=== PATIENT | female | born 1960 | race Caucasian/White ===

== ENCOUNTER 2017-12-12 17:34 | Inpatient (IN) | payer OTHER, MEDICAID ==
[~2017-12-12] VITALS: Ht 167.6 cm; Wt 46.1 kg
[2017-12-12] MEDS ORDERED: MORPHINE SULFATE 4 MG/ML SYR/VIAL IV ONE ×2 (18:30→20:00)
[2017-12-12] MEDS ORDERED: ONDANSETRON HCL 4 MG/2 ML VIAL IV ONE ×2 (18:30→20:00)
[2017-12-12] MEDS ORDERED: HYDROmorphone HCL 2 MG/ML VL IV ONE (23:15)
[2017-12-13 02:23] LABS: Basophils # (auto) 0.1 uL; Eosinophils # (auto) 0.2 uL; Hemoglobin 11.3 g/dL (12.2-16.2)
[2017-12-13 02:25] LABS: Basophils % (auto) 1.4 % (0.0-2.0); Eosinophils % (auto) 2.4 % (0.0-7.0); Hematocrit 34.2 % (36.0-46.0); Lymphocytes # (auto) 2.9 uL; Lymphocytes % (auto) 28.9 % (10.0-50.0); Mean Corpuscular Hemoglobin 26.6 pg (28.0-32.0); Mean Corpuscular Hgb Conc. 33.1 g/dL (32.0-36.0); Mean Corpuscular Volume 80.5 fL (80.0-100.0); Monocytes # (auto) 1.2 uL; Monocytes % (auto) 11.6 % (0.0-12.0); Neutrophils # (auto) 5.6 uL; Neutrophils % (auto) 55.7 % (37.0-80.0); Platelet Count (auto) 308 10^3/uL (140-450); Red Blood Cells 4.25 10^6/uL (4.0-5.20); Red Cell Distribution Width 15.6 % (11.8-14.3)
[2017-12-13 02:35] LABS: BUN/Creatinine Ratio 8.9; Calcium 7.6 mg/dL (8.5-10.1)
[2017-12-13 02:44] LABS: Bilirubin, Total 0.8 mg/dL (0.2-1.0); Total Protein 6.2 g/dL (6.4-8.2)
[2017-12-13 02:46] LABS: Potassium 2.8 mmol/L (3.5-5.1)
[2017-12-13] MEDS ORDERED: POTASSIUM CHL 20 Meq TABLET PO ONE ×2 (03:00→07:00)
[2017-12-13] MEDS ORDERED: HYDROmorphone HCL 2 MG/ML VL IV ONE (03:30)
[2017-12-13 05:29] LABS: Urine Amorphous Crystal FEW /hpf (None Seen); Urine Bacteria NONE SEEN /hpf (None Seen); Urine Blood Negative /uL (Negative); Urine Specific Gravity 1.014 (1.001-1.035); Urine WBC 2 /hpf (0 - 5)
[2017-12-13] MEDS ORDERED: ACETAMINOPHEN 500 MG TAB PO PRN (07:00)
[2017-12-13] MEDS ORDERED: methylPREDNISolone SOD SUCC 125 MG/2 ML VL IM ONE (07:00)
[2017-12-13] MEDS ORDERED: MORPHINE SULFATE 4 MG/ML SYR/VIAL IV PRN (07:00)
[2017-12-13] MEDS ORDERED: HYDROcodone-ACET 5/325MG TAB PO PRN ×2 (07:00→10:30)
[2017-12-13 08:01] LABS: Basophils # (auto) 0.1 uL; Eosinophils # (auto) 0.4 uL; Monocytes # (auto) 1.1 uL; Nucleated Red Blood Cells % 0.1 %
[2017-12-13 08:02] LABS: Eosinophils % (auto) 3.7 % (0.0-7.0); Hematocrit 37.5 % (36.0-46.0); Lymphocytes # (auto) 3.5 uL; Lymphocytes % (auto) 33.3 % (10.0-50.0); Mean Corpuscular Hemoglobin 26.3 pg (28.0-32.0); Mean Corpuscular Hgb Conc. 32.1 g/dL (32.0-36.0); Mean Corpuscular Volume 81.8 fL (80.0-100.0); Neutrophils # (auto) 5.5 uL; Platelet Count (auto) 326 10^3/uL (140-450); Red Blood Cells 4.58 10^6/uL (4.0-5.20); White Blood Cell 10.6 10^3/uL (4.4-10.8)
[2017-12-13 08:13] LABS: BUN/Creatinine Ratio 7.5; Calcium 7.7 mg/dL (8.5-10.1); Potassium 3.2 mmol/L (3.5-5.1)
[2017-12-13 08:45] VITALS: BP 150/102
[2017-12-13] MEDS ORDERED: LORA-654 PO (09:53)
[2017-12-13] MEDS ORDERED: PNEUMOCOCCAL VACC POLYS 25 MCG/0.5 ML VIAL IM ONE (10:00)
[2017-12-13] MEDS ORDERED: INFLUENZA QUAD 2018-2019 0.5 ML SYRG IM ONE (10:00)
[2017-12-13] MEDS: LORazepam 0.5 MG TAB PO PRN ×2 (11:16→19:59)
[2017-12-13] MEDS: SOD CHL 0.45% WITH 20MEQ KCL 1,000 ML IV SCH ×2 (11:17→21:09)
[2017-12-13] MEDS: POTASSIUM CHL 20 Meq TABLET PO SCH ×2 (11:17→22:05)
[2017-12-13 13:00] VITALS: BP 157/99
[2017-12-13] MEDS ORDERED: MORPHINE SULFATE 4 MG/ML SYR/VIAL IV ONE (16:15)
[2017-12-13] MEDS ORDERED: OXYCODONE W/ ACETAMINOPHEN 5/325MG TABLET PO PRN (16:15)
[2017-12-13 16:47] VITALS: BP 161/91
[2017-12-13] MEDS: OXYCODONE W/ ACETAMINOPHEN 5/325MG TABLET PO PRN (18:54)
[2017-12-13 22:00] VITALS: BP 156/101
[2017-12-13] MEDS ORDERED: MORPHINE SULF 15mg ER tab PO SCH (22:00)
[2017-12-14] MEDS ORDERED: NALBUPHINE HCL 10 MG/1ml INJECTION IM ONE (01:00)
[2017-12-14] MEDS: OXYCODONE W/ ACETAMINOPHEN 5/325MG TABLET PO PRN ×2 (01:57→06:50)
[2017-12-14 05:00] VITALS: BP 163/115
[2017-12-14] MEDS: LORazepam 0.5 MG TAB PO PRN ×2 (06:13→16:34)
[2017-12-14] MEDS: SOD CHL 0.45% WITH 20MEQ KCL 1,000 ML IV SCH (06:43)
[2017-12-14 07:59] LABS: Basophils # (auto) 0.1 uL; Eosinophils # (auto) 0 uL; Nucleated Red Blood Cells % 0.2 %; Red Blood Cells 4.45 10^6/uL (4.0-5.20)
[2017-12-14 08:02] LABS: Basophils % (auto) 0.6 % (0.0-2.0); Eosinophils % (auto) 0.2 % (0.0-7.0); Hematocrit 36.1 % (36.0-46.0); Hemoglobin 11.5 g/dL (12.2-16.2); Lymphocytes # (auto) 4.1 uL; Mean Corpuscular Hemoglobin 25.9 pg (28.0-32.0); Mean Corpuscular Volume 81.1 fL (80.0-100.0); Monocytes # (auto) 1.3 uL; Monocytes % (auto) 10.4 % (0.0-12.0); Neutrophils # (auto) 6.6 uL; Neutrophils % (auto) 54.8 % (37.0-80.0); Platelet Count (auto) 342 10^3/uL (140-450); Red Cell Distribution Width 15.3 % (11.8-14.3)
[2017-12-14 08:13] LABS: Calcium 8.3 mg/dL (8.5-10.1)
[2017-12-14 08:15] LABS: BUN/Creatinine Ratio 15.1
[2017-12-14 08:51] VITALS: BP 175/118
[2017-12-14] MEDS ORDERED: MORPHINE SULFATE 4 MG/ML SYR/VIAL IV ONE (09:00)
[2017-12-14] MEDS ORDERED: methylPREDNISolone SOD SUCC 125 MG/2 ML VL IV ONE (09:00)
[2017-12-14] MEDS ORDERED: MORPHINE SULF 15mg ER tab PO ONE (09:00)
[2017-12-14] MEDS: MORPHINE SULFATE 10 MG/5 ML ORAL SOLN PO PRN ×3 (11:49→22:58)
[2017-12-14] MEDS: cloNIDine HCL 0.1 MG TAB PO PRN ×2 (11:50→17:48)
[2017-12-14 12:00] VITALS: BP 162/115
[2017-12-14 16:54] VITALS: BP 181/95
[2017-12-14] MEDS ORDERED: HYDR2TAB58 PO (19:31)
[2017-12-14] MEDS ORDERED: CAR3125T PO (19:31)
[2017-12-14] MEDS: MORPHINE SULF 30 mg ER tab PO SCH (21:36)
[2017-12-14 21:44] VITALS: BP 148/86
[2017-12-15] MEDS: LORazepam 0.5 MG TAB PO PRN ×4 (00:56→22:49)
[2017-12-15] MEDS: MORPHINE SULFATE 10 MG/5 ML ORAL SOLN PO PRN ×2 (03:14→07:55)
[2017-12-15 04:39] VITALS: BP 147/73
[2017-12-15 05:45] LABS: Basophils # (auto) 0.1 uL; Eosinophils # (auto) 0.1 uL; Hemoglobin 11.7 g/dL (12.2-16.2); Lymphocytes # (auto) 2.6 uL; Monocytes # (auto) 0.9 uL
[2017-12-15 05:52] LABS: Basophils % (auto) 0.5 % (0.0-2.0); Eosinophils % (auto) 0.6 % (0.0-7.0); Hematocrit 35.5 % (36.0-46.0); Lymphocytes % (auto) 25.8 % (10.0-50.0); Mean Corpuscular Hemoglobin 26.9 pg (28.0-32.0); Mean Corpuscular Hgb Conc. 32.8 g/dL (32.0-36.0); Mean Corpuscular Volume 81.9 fL (80.0-100.0); Monocytes % (auto) 8.8 % (0.0-12.0); Neutrophils # (auto) 6.6 uL; Neutrophils % (auto) 64.3 % (37.0-80.0); Nucleated Red Blood Cells % 0.2 %; Platelet Count (auto) 303 10^3/uL (140-450); Red Blood Cells 4.34 10^6/uL (4.0-5.20); Red Cell Distribution Width 15.7 % (11.8-14.3); White Blood Cell 10.2 10^3/uL (4.4-10.8)
[2017-12-15 05:59] LABS: Potassium 3.6 mmol/L (3.5-5.1)
[2017-12-15 06:07] LABS: Calcium 8.1 mg/dL (8.5-10.1)
[2017-12-15] MEDS ORDERED: POTASSIUM CHL 20 Meq TABLET PO ONE (08:15)
[2017-12-15] MEDS: cloNIDine HCL 0.1 MG TAB PO PRN ×2 (08:29→21:17)
[2017-12-15 09:00] VITALS: BP 163/86
[2017-12-15] MEDS: MORPHINE SULF 30 mg ER tab PO SCH ×2 (09:17→22:05)
[2017-12-15] MEDS: predniSONE 20 MG TAB PO SCH (09:17)
[2017-12-15] MEDS: HYDROmorphone HCL 2 MG TAB PO PRN ×3 (12:44→20:56)
[2017-12-15 13:00] VITALS: BP 149/91
[2017-12-15 17:00] VITALS: BP 153/95
[2017-12-15 22:00] VITALS: BP 163/103
[2017-12-15 22:17] VITALS: BP 150/89
[2017-12-16] MEDS: HYDROmorphone HCL 2 MG TAB PO PRN ×3 (02:03→12:45)
[2017-12-16] MEDS: cloNIDine HCL 0.1 MG TAB PO PRN (04:19)
[2017-12-16 04:41] VITALS: BP 164/102
[2017-12-16 05:49] LABS: Basophils # (auto) 0.1 uL; Eosinophils # (auto) 0.1 uL; Eosinophils % (auto) 0.8 % (0.0-7.0); Neutrophils # (auto) 5.4 uL; Nucleated Red Blood Cells % 0.1 %
[2017-12-16 05:51] LABS: Basophils % (auto) 0.7 % (0.0-2.0); Hematocrit 35.8 % (36.0-46.0); Hemoglobin 11.5 g/dL (12.2-16.2); Lymphocytes # (auto) 3.2 uL; Lymphocytes % (auto) 32.6 % (10.0-50.0); Mean Corpuscular Hemoglobin 25.8 pg (28.0-32.0); Mean Corpuscular Volume 80.9 fL (80.0-100.0); Monocytes % (auto) 10.6 % (0.0-12.0); Neutrophils % (auto) 55.3 % (37.0-80.0); Platelet Count (auto) 308 10^3/uL (140-450); Red Blood Cells 4.43 10^6/uL (4.0-5.20); Red Cell Distribution Width 15.3 % (11.8-14.3); White Blood Cell 9.8 10^3/uL (4.4-10.8)
[2017-12-16 06:00] LABS: BUN/Creatinine Ratio 17.5; Calcium 8.2 mg/dL (8.5-10.1); Potassium 3.6 mmol/L (3.5-5.1)
[2017-12-16] MEDS: LORazepam 0.5 MG TAB PO PRN (06:27)
[2017-12-16] MEDS ORDERED: MORPHINE SULFATE 4 MG/ML SYR/VIAL IV ONE (07:45)
[2017-12-16] MEDS: predniSONE 20 MG TAB PO SCH (10:25)
[2017-12-16] MEDS: MORPHINE SULF 30 mg ER tab PO SCH (10:25)
[2017-12-16 12:53] VITALS: BP 146/99
== END 2017-12-16 14:50 | disposition home health service (06) | DRG 554 ==
LOC: ER 17:34 → EDBD 17:34 → OVERFLOW 17:35 → WEST WING 12-13 08:52
PROVIDERS: ADMIT Nurse Practitioner Family; ATTEND Internal Medicine
DX: M16.0 Bilateral primary osteoarthritis of hip (principal); M54.9 Dorsalgia, unspecified; E87.6 Hypokalemia; F17.210 Nicotine dependence, cigarettes, uncomplicated; M24.7 Protrusio acetabuli; M48.02 Spinal stenosis, cervical region; G89.29 Other chronic pain; I50.9 Heart failure, unspecified; M19.019 Primary osteoarthritis, unspecified shoulder; M06.9 Rheumatoid arthritis, unspecified; W07.XXXA Fall from chair, initial encounter; Z87.81 Personal history of (healed) traumatic fracture; Z98.51 Tubal ligation status; Y93.89 Activity, other specified; Y92.89 Other specified places as the place of occurrence of the external cause; Z28.21 Immunization not carried out because of patient refusal
CPT/HCPCS: 36415; 72125; 72131; 72192; 73030; 73090; 73200; 76881; 80048; 80053; 81001; 85025; 96374; 96375; 96376; 97116; 97163; 97530; J2405

== ENCOUNTER 2019-08-09 21:58 | Inpatient (IN) | payer MEDICARE, MEDICAID ==
[~2019-08-09] VITALS: Ht 157.5 cm; Wt 51.3 kg
[~2019-08-09 21:58] MED LIST: CAR3125T PO; HYDR2TAB58 PO; LORA0.5T20 PO; SERT50TA PO
[2019-08-09] MEDS ORDERED: PHYTONADIONE (VIT K)10 MG/ML 1ML VIAL SUBCUT ONE (22:15)
[2019-08-09] MEDS ORDERED: PANTOPRAZOLE 40 MG/10 ML VIAL INJ IV ONE (22:15)
[2019-08-09 22:42] LABS: Basophils # (auto) 0 10 ^3/uL (0-0.2); Basophils % (auto) 0.5 % (0.0-2.0); Eosinophils # (auto) 0.1 10 ^3/uL (0-0.8); Eosinophils % (auto) 1.1 % (0.0-7.0); Hematocrit 21.2 % (36.0-46.0); Lymphocytes # (auto) 1.1 10 ^3/uL (0.4-5.4); Lymphocytes % (auto) 17.9 % (10.0-50.0); Mean Corpuscular Hemoglobin 29.1 pg (28.0-32.0); Mean Corpuscular Hgb Conc. 29.9 g/dL (32.0-36.0); Mean Corpuscular Volume 97.2 fL (80.0-100.0); Monocytes # (auto) 0.6 10 ^3/uL (0-1.3); Neutrophils # (auto) 4.4 10 ^3/uL (1.6-8.6); Neutrophils % (auto) 71.5 % (37.0-80.0); Platelet Count (auto) 113 10^3/uL (140-450); Red Blood Cells 2.18 10^6/uL (4.0-5.20); Red Cell Distribution Width 16.6 % (11.8-14.3); White Blood Cell 6.1 10^3/uL (4.4-10.8)
[2019-08-09] MEDS ORDERED: MORPHINE SULFATE 4 MG/ML SYR/VIAL IV ONE (22:45)
[2019-08-09] MEDS ORDERED: ONDANSETRON HCL 4 MG/2 ML VIAL IV ONE (22:45)
[2019-08-09 22:50] LABS: Hemoglobin 6.3 g/dL (12.2-16.2)
[2019-08-09 22:52] LABS: INR 1.39 (0.9-1.15); Partial Thromboplastin Time 25.7 sec (23.64-32.05)
[2019-08-09 22:56] LABS: Albumin 2.3 g/dL (3.4-5.0); Anion Gap 9 (5-15); Calcium 6.9 mg/dL (8.5-10.1); Carbon Dioxide 17 mmol/L (21-32); Chloride 114 mmol/L (98-107); Glucose 90 mg/dL (74-106); Potassium 3.5 mmol/L (3.5-5.1); Sodium 140 mmol/L (136-145)
[2019-08-09 22:59] LABS: Alanine Aminotransferase 18 U/L (13-56); Alkaline Phosphatase 57 U/L (45-117); Aspartate Aminotransferase 9 U/L (15-37); BUN/Creatinine Ratio 117.9; Bilirubin, Total 0.2 mg/dL (0.2-1.0); GFR African American 98 mL/min; GFR Non-African American 81 mL/min; Total Protein 4.5 g/dL (6.4-8.2)
[2019-08-09 23:09] LABS: Urine WBC None Seen /hpf (0 - 5)
[2019-08-09 23:18] LABS: Urine Bacteria FEW /hpf (None Seen); Urine Blood 2+ /uL (Negative); Urine Mucus FEW (None Seen); Urine Specific Gravity 1.015 (1.001-1.035)
[2019-08-09 23:22] LABS: Blood Urea Nitrogen 92 mg/dL (7-18)
[2019-08-10] VITALS (23 sets, daily range): BP systolic 86–114; BP diastolic 43–54
[2019-08-10] MEDS ORDERED: NOREPINEPHRINE 8 MG/250ML KIT 250 ML IV SCH
[2019-08-10] MEDS ORDERED: MORPHINE SULF INJ 2 MG/ML SYRINGE 1ML IV ONE
[2019-08-10] MEDS ORDERED: NOREPINEPHRINE 8 MG/250ML KIT 250 ML IV ONE (00:04)
[2019-08-10] MEDS ORDERED: MORPHINE SULFATE 4 MG/ML SYR/VIAL IV ONE (02:45)
[2019-08-10] MEDS ORDERED: ONDANSETRON HCL 4 MG/2 ML VIAL IV ONE ×2 (02:45)
[2019-08-10] MEDS ORDERED: SODIUM CHLORIDE 0.9% 1,000 ML IV SCH (02:45)
[2019-08-10] MEDS ORDERED: MORPHINE SULF INJ 2 MG/ML SYRINGE 1ML IV PRN (04:15)
[2019-08-10] MEDS ORDERED: ACETAMINOPHEN 325 MG TAB PO PRN (04:15)
[2019-08-10] MEDS ORDERED: NITROGLYCERIN 0.4 MG SL TAB SL PRN (04:15)
[2019-08-10] MEDS ORDERED: DOCUSATE SOD 100 MG CAP PO PRN (04:15)
[2019-08-10] MEDS: SODIUM CHLORIDE 0.9% 1,000 ML IV SCH ×4 (05:46→21:37)
[2019-08-10] MEDS ORDERED: MORPHINE SULF 30 mg ER tab PO SCH (06:00)
[2019-08-10] MEDS ORDERED: MORPHINE SULF 30 mg ER tab PO PRN (07:00)
[2019-08-10 07:21] LABS: Anion Gap 8 (5-15); BUN/Creatinine Ratio 106.3; Blood Urea Nitrogen 67 mg/dL (7-18); Calcium 6.8 mg/dL (8.5-10.1); Carbon Dioxide 18 mmol/L (21-32); Chloride 118 mmol/L (98-107); GFR African American 125 mL/min; GFR Non-African American 104 mL/min; Glucose 94 mg/dL (74-106); Potassium 4.6 mmol/L (3.5-5.1); Sodium 144 mmol/L (136-145)
[2019-08-10] MEDS: ONDANSETRON HCL 4 MG/2 ML VIAL IV PRN ×2 (08:03→12:14)
[2019-08-10] MEDS: MORPHINE SULF INJ 2 MG/ML SYRINGE 1ML IV PRN ×2 (08:03→12:15)
[2019-08-10] MEDS: cefTRIAXone 1GM/50ML D5W 50 ML IV SCH (10:12)
[2019-08-10 10:19] LABS: Basophils # (auto) 0 10 ^3/uL (0-0.2); Eosinophils # (auto) 0.2 10 ^3/uL (0-0.8); Eosinophils % (auto) 2.4 % (0.0-7.0); Lymphocytes # (auto) 2.3 10 ^3/uL (0.4-5.4)
[2019-08-10 10:21] LABS: Basophils % (auto) 0.4 % (0.0-2.0); Hematocrit 18.9 % (36.0-46.0); Lymphocytes % (auto) 24.3 % (10.0-50.0); Mean Corpuscular Hemoglobin 29.7 pg (28.0-32.0); Mean Corpuscular Volume 89.9 fL (80.0-100.0); Monocytes # (auto) 0.9 10 ^3/uL (0-1.3); Monocytes % (auto) 9.3 % (0.0-12.0); Neutrophils # (auto) 5.9 10 ^3/uL (1.6-8.6); Neutrophils % (auto) 63.6 % (37.0-80.0); Platelet Count (auto) 100 10^3/uL (140-450); Red Blood Cells 2.11 10^6/uL (4.0-5.20); Red Cell Distribution Width 15.2 % (11.8-14.3); White Blood Cell 9.3 10^3/uL (4.4-10.8)
[2019-08-10 10:33] LABS: Hemoglobin 6.3 g/dL (12.2-16.2)
[2019-08-10 13:13] LABS: Hematocrit 20.6 % (36.0-46.0)
[2019-08-10 13:16] LABS: Hemoglobin 6.8 g/dL (12.2-16.2)
[2019-08-10] MEDS ORDERED: LORazepam 0.5 MG TAB PO ONE (15:45)
[2019-08-10] MEDS: HYDROcodone-ACET 5/325MG TAB PO PRN ×2 (19:08→23:19)
[2019-08-10 19:59] LABS: Hematocrit 20.1 % (36.0-46.0)
[2019-08-10 20:06] LABS: Hemoglobin 6.7 g/dL (12.2-16.2)
[2019-08-10] MEDS: PANTOPRAZOLE 40mg/50ML NS AE 50 ML IV SCH (21:36)
[2019-08-10] MEDS ORDERED: PANTOPRAZOLE 40 MG/10 ML VIAL INJ IV SCH (22:00)
[2019-08-11] VITALS (10 sets, daily range): BP systolic 91–134; BP diastolic 36–62
--- NOTE | 2019-08-11 00:10 | NUR ---
Admit to [facility] MACK RODRIGUEZ admitted to [facility] via gurney on commercial diver, and portable 02. Patient transferred to bed, connected to unit monitoring and weighed by bedscale. Patient oriented to MERISSA SHAH, primary RN, unit, room, bed, and unit policies regarding patient care and visiting hours. Right upper arm midline and left forearm iv - clean/dry/intact. Currently infusing PRBC - no signs of reaction. Patient refuses leonard catheter placement. Will continue to monitor
--- NOTE | 2019-08-11 00:45 | NUR ---
Patient placed on bed cabrera
--- NOTE | 2019-08-11 01:05 | NUR ---
Place patient on bed cabrera to urinate.
--- NOTE | 2019-08-11 01:27 | NUR ---
Placed patient on bed cabrera to urinate. Educated patient on leonard catheter placement due to urgency / frequency / incontinence - patient refused leonard catheter. Will continue to monitor.
[2019-08-11] MEDS: PANTOPRAZOLE 40mg/50ML NS AE 50 ML IV SCH ×4 (01:41→16:45)
[2019-08-11] MEDS: MORPHINE SULF INJ 2 MG/ML SYRINGE 1ML IV PRN ×4 (03:52→22:46)
[2019-08-11 04:28] LABS: Basophils # (auto) 0 10 ^3/uL (0-0.2); Basophils % (auto) 0.6 % (0.0-2.0); Mean Corpuscular Hemoglobin 31.3 pg (28.0-32.0); Mean Corpuscular Volume 90.2 fL (80.0-100.0); Monocytes # (auto) 0.5 10 ^3/uL (0-1.3); Neutrophils # (auto) 3.9 10 ^3/uL (1.6-8.6); Red Blood Cells 2.55 10^6/uL (4.0-5.20)
[2019-08-11 04:31] LABS: Eosinophils # (auto) 0.1 10 ^3/uL (0-0.8); Eosinophils % (auto) 2.4 % (0.0-7.0); Lymphocytes % (auto) 17.5 % (10.0-50.0); Mean Corpuscular Hgb Conc. 34.6 g/dL (32.0-36.0); Monocytes % (auto) 8.8 % (0.0-12.0); Neutrophils % (auto) 70.7 % (37.0-80.0); Platelet Count (auto) 71 10^3/uL (140-450); Red Cell Distribution Width 15.4 % (11.8-14.3); White Blood Cell 5.4 10^3/uL (4.4-10.8)
[2019-08-11 04:41] LABS: Calcium 7.2 mg/dL (8.5-10.1); Potassium 3.9 mmol/L (3.5-5.1)
[2019-08-11 04:43] LABS: BUN/Creatinine Ratio 59.6
[2019-08-11] MEDS: LORazepam 0.5 MG TAB PO PRN ×2 (05:19→18:08)
--- NOTE | 2019-08-11 05:47 | NUR ---
DARK / TARRY STOOL Patient had loose bowel movement - dark / tarry stool. Partial linen change. Will continue to monitor.
[2019-08-11] MEDS: SODIUM CHLORIDE 0.9% 1,000 ML IV SCH ×2 (06:47→16:45)
--- NOTE | 2019-08-11 06:50 | NUR ---
Dr. Sanchez Spoke with Dr. Sanchez - updated on patient status. Received orders to draw another H/H at 0900 08/11/19. Noted and carried out
--- NOTE | 2019-08-11 07:30 | NUR ---
OPENING SHIFT NOTE REPORT RECEIVED FROM AGRICULTURE SCIENCE TEACHER RN, MORNING ASSESSMENT PERFORMED AND DOCUMENTED, 58 YEAR OLD FEMALE, RESTING IN BED WITH EYES CLOSED, NO DISTRESS NOTED RESPIRATIONS EVEN AND UNLABORED - VSS AND DOCUMENTED. PATIENT OPENED EYES SPONTANEOUSLY AND REPORTED CHRONIC GENERALIZED PAIN 06/13, PATIENT NOTIFIED THAT MEDICAL RECORDS WILL BE REVIEWED AND PAIN MEDICATION WILL BE ADMINISTERED ORDERED BY MD, PATIENT VERBALIZED UNDERSTANDING. NEED FOR LAMB CATHETER WAS DISCUSSED WITH PATIENT BY CAMRYN, RN AFTER REFUSING PER AGRICULTURE SCIENCE TEACHER RN, PATIENT VERBALIZED UNDERSTANDING AND AGREEMENT AND AUTHORIZED NURSE TO PLACE LAMB CATHETER. FALL AND SAFETY PRECAUTIONS IN PLACE, WILL CONTINUE TO MONITOR.
--- NOTE | 2019-08-11 07:46 | NUR ---
End of shift Report given to day shift RN. Care endorsed.
--- NOTE | 2019-08-11 08:15 | NUR ---
Leonard catheter insertion Orders for leonard catheter insertion entered by . Patient educated on catheter and reason for insertion after refusing insertion during shift commander. All questions answered, patient verbalized understanding and gave verbal permission. Leonard catheter 16 gauge Bulgarian inserted with clean sterile technique by RN Dorothy and this nurse's assistance. Patient tolerated well and emptying clear/pale urine to gravity in to collection bag.
--- NOTE | 2019-08-11 08:40 | NUR ---
BM/COMFORT PATIENT CLEANSED OF MODERATE SIZE DARK TARRY SOFT STOOL, PATIENT TOLERATED WELL. WILL CONTINUE TO MONITOR.
[2019-08-11 09:36] LABS: Hemoglobin 8.3 g/dL (12.2-16.2)
--- NOTE | 2019-08-11 09:37 | NUR ---
Family updated on pt status Family of MACK RODRIGUEZ updated on patient's status and condition after obtaining verbal authorization from patient herself to speak with "Therese". All questions and concerns addressed. Patient's daughter Therese verbalized understanding. Visiting hours and password were discussed with patient, patient did provide password of "[email or web address]". Patient's daughter Therese aware.
[2019-08-11 09:39] LABS: Hematocrit 24.5 % (36.0-46.0)
--- NOTE | 2019-08-11 10:10 | NUR ---
PATIENT OFF FLOOR FOR SCHEDULED PROCEDURE VIA GURNEY, CONNECTED TO PORTABLE MONITOR. PATIENT ALERT AND ORIENTED X4, NO DISTRESS NOTED, RESPIRATIONS EVEN AND UNLABORED - PATIENT ON ROOM AIR, VSS AND DOCUMENTED. PATIENT ACCOMPANIED BY CHARGE NURSE AND HOSPITAL STAFF. WILL CONTINUE TO MONITOR UPON RETURN TO FLOOR.
[2019-08-11] MEDS: MIDAZOLAM HCL 5 MG/ML-1ML VIAL ONE ×2 (11:55→11:57)
[2019-08-11] MEDS: fentaNYL CITRATE 100 MCG/2 ML VL ONE ×2 (11:55→11:57)
--- NOTE | 2019-08-11 12:24 | NUR ---
PATIENT REMAINS OFF FLOOR NOON INTERVENTIONS NOT COMPLETE DUE TO PATIENT REMAINING OFF FLOOR FOR SCHEDULED PROCEDURE. WILL CONTINUE TO MONITOR UPON RETURN TO FLOOR.
[2019-08-11] MEDS ORDERED: SUCRALFATE 1 GM/10 ML ORAL SUSP PO ONE (12:30)
--- NOTE | 2019-08-11 12:33 | NUR ---
RETORT RECEIVED FROM GI LAB AWAITING PATIENT TO RETURN TO ROOM.
--- NOTE | 2019-08-11 12:40 | NUR ---
PATIENT RETURN TO FLOOR FROM GI LAB - PATIENT CONNECTED TO BEDSIDE MONITOR, VSS AND DOCUMENTED. PATIENT ALERT AND ORIENTED X4, NO DISTRESS NOTED, RESPIRATIONS EVEN AND UNLABORED. PATIENT DENIES PAIN OR DISCOMFORT AT THIS TIME, PATIENT WATCHING TELEVISION AND PROVIDED WITH CLEAR LIQUID DIET. CALL LIGHT AND ALL PERSONAL BELONGINGS WITHIN REACH.
--- NOTE | 2019-08-11 12:55 | NUR ---
CALL RECEIVED FROM DR Thierry YOUNG PROVIDED THIS NURSE WITH UPDATED STATUS AND REQUESTED H&H TO BE REASSESSED AT [address] AFTER [address]. DR Thierry YOUNG ALSO STATED "PATIENT CAN BE DOWNGRADED FROM GI STANDPOINT THIS EVENING IF STABLE".
[2019-08-11 13:06] LABS: Hematocrit 22.6 % (36.0-46.0); Hemoglobin 7.8 g/dL (12.2-16.2)
[2019-08-11] MEDS ORDERED: SODIUM CHLORIDE LOCK 10 ML ONE (14:24)
[2019-08-11] MEDS ORDERED: LIDOCAINE VISCOUS 2% 15ML UD ONE (14:24)
--- NOTE | 2019-08-11 14:26 | NUR ---
PAGED DR LOU TO DISCUSS PATIENT'S HOME ORAL PAIN MEDICATIONS, AWAITING RESPONSE.
--- NOTE | 2019-08-11 15:14 | NUR ---
PAGED DR LOU TO NOTIFY OF PATIENT'S HOME PAIN MEDICATION AND OBTAIN ORDER, AWAITING RESPONSE.
[2019-08-11] MEDS: cefTRIAXone 1GM/50ML D5W 50 ML IV SCH (15:19)
--- NOTE | 2019-08-11 15:52 | NUR ---
BM/COMFORT PATIENT CLEANSED OF SMALL DARK TARRY STOOL - COMPLETE BEDDING CHANGED, PATIENT TOLERATED WELL. FALL AND SAFETY PRECAUTIONS IN PLACE, CALL LIGHT AND ALL PERSONAL BELONGINGS WITHIN REACH.
[2019-08-11] MEDS: SUCRALFATE 1 GM/10 ML ORAL SUSP PO SCH ×2 (17:40→22:00)
[2019-08-11 18:31] LABS: Hematocrit 24.9 % (36.0-46.0); Hemoglobin 8.5 g/dL (12.2-16.2)
--- NOTE | 2019-08-11 19:03 | NUR ---
END OF SHIFT NOTE PATIENT SITTING UP WATCHING TELEVISION, ALERT AND ORIENTED X4, NO DISTRESS NOTED, RESPIRATIONS EVEN AND UNLABORED ON ROOM AIR, VSS AND DOCUMENTED. PATIENT PREVIOUSLY PLACED ON BEDPAN BUT NO BOWEL MOVEMENT ONLY PASSING GAS. FALL AND SAFETY PRECAUTIONS IN PLACE, ENDORSED CONTINUED CARE TO GOLF INSTRUCTOR RN.
--- NOTE | 2019-08-11 19:10 | NUR ---
Opening Shift Received report from day shift RN. Assumed care of patient. Patient in bed resting with no signs or symptoms of SOB, pain or distress. Currently on room air, 02 sat - 98%. Right upper arm midline and left forearm IV - clean/dry/intact. Schaeffer hung to gravity. Repositioned for comfort. Updated plan of care. bed in lowest position, side rails up x2, call light within reach. Will continue to monitor.
[2019-08-11] MEDS: HYDROcodone-ACET 5/325MG TAB PO PRN (21:02)
[2019-08-11] MEDS: PANTOPRAZOLE 40 MG/10 ML VIAL INJ IV SCH (22:00)
[2019-08-12] VITALS: BP 120/63
[2019-08-12 00:44] LABS: Hematocrit 23.1 % (36.0-46.0); Hemoglobin 7.9 g/dL (12.2-16.2)
[2019-08-12] MEDS: SODIUM CHLORIDE 0.9% 1,000 ML IV SCH ×3 (02:45→18:05)
--- NOTE | 2019-08-12 02:57 | NUR ---
PAIN: Pt c/o pain at level 8/10 "all over body." Pt requesting medication for pain. Pt medicated w/ Morphine 1mg IVP as per order. To continue to monitor pt.
[2019-08-12] MEDS: MORPHINE SULF INJ 2 MG/ML SYRINGE 1ML IV PRN ×4 (02:58→18:05)
[2019-08-12 03:36] LABS: Basophils # (auto) 0 10 ^3/uL (0-0.2); Basophils % (auto) 0.5 % (0.0-2.0); Eosinophils # (auto) 0.1 10 ^3/uL (0-0.8); Eosinophils % (auto) 2.7 % (0.0-7.0); Lymphocytes # (auto) 0.8 10 ^3/uL (0.4-5.4); Lymphocytes % (auto) 18.5 % (10.0-50.0); Red Cell Distribution Width 15.2 % (11.8-14.3); White Blood Cell 4.4 10^3/uL (4.4-10.8)
[2019-08-12 03:38] LABS: Hematocrit 24.4 % (36.0-46.0); Mean Corpuscular Hemoglobin 29.6 pg (28.0-32.0); Mean Corpuscular Hgb Conc. 32.8 g/dL (32.0-36.0); Mean Corpuscular Volume 90.4 fL (80.0-100.0); Monocytes # (auto) 0.5 10 ^3/uL (0-1.3); Monocytes % (auto) 10.7 % (0.0-12.0); Neutrophils % (auto) 67.6 % (37.0-80.0); Platelet Count (auto) 78 10^3/uL (140-450); Red Blood Cells 2.71 10^6/uL (4.0-5.20)
--- NOTE | 2019-08-12 03:50 | NUR ---
Morning care Performed morning care with CHG wipes and wash cloths to the face. Partial linen change and gown changed. Schaeffer care performed. Repositioned for comfort. Skin reassessed at this time. Will continue to monitor.
[2019-08-12 03:53] LABS: Albumin 2.6 g/dL (3.4-5.0); Calcium 7.4 mg/dL (8.5-10.1); Potassium 3.4 mmol/L (3.5-5.1)
[2019-08-12 03:57] LABS: BUN/Creatinine Ratio 15.4; Bilirubin, Total 0.6 mg/dL (0.2-1.0); Total Protein 4.8 g/dL (6.4-8.2)
[2019-08-12 04:00] VITALS: BP 130/73
[2019-08-12] MEDS: LORazepam 0.5 MG TAB PO PRN ×3 (05:00→21:57)
--- NOTE | 2019-08-12 05:10 | NUR ---
Paged Hospitalist - awaiting call back.
--- NOTE | 2019-08-12 06:18 | NUR ---
[facility] Hospitalist - awaiting call back. Addendum: 08/12/19 at 0642 by MERISSA SHAH RN RN second page
[2019-08-12] MEDS: SUCRALFATE 1 GM/10 ML ORAL SUSP PO SCH ×4 (06:40→21:57)
--- NOTE | 2019-08-12 07:24 | NUR ---
End of shift Report given to day shift RN. Care endorsed.
--- NOTE | 2019-08-12 07:35 | NUR ---
OPENING SHIFT NOTE PATIENT RESTING IN BED, WATCHING TELEVISION, ALERT AND ORIENTED X4, NO DISTRESS NOTED, RESPIRATIONS EVEN AND UNLABORED ON ROOM AIR AND VITAL SIGNS STABLE. PATIENT MEDICATED PRIOR TO SHIFT CHANGE AND REPORTS CURRENT PAIN LEVEL 6/10. PATIENT DID REPORT TO THIS NURSE THAT SHE HAS CHRONIC GENERALIZED PAIN DUE TO ARTHRITIS. WHEN DISCUSSING LOWEST PAIN LEVEL, PATIENT STATES "I AM ALWAYS 5/6 OUT OF 10". THIS NURSE DISCUSSED PLAN OF CARE WITH PATIENT, PATIENT VERBALIZED UNDERSTANDING. FALL AND SAFETY PRECAUTIONS IN PLACE.
[2019-08-12 07:40] VITALS: BP 135/76
--- NOTE | 2019-08-12 08:50 | NUR ---
BM/COMFORT PATIENT ASSISTED BY CCT TO BEDSIDE COMMODE AND CLEANSED OF SMALL/SOFT DARK TARRY STOOL. THIS PATIENT WAS OFFERED TO SIT UP IN BEDSIDE CHAIR BUT REFUSED AND REQUESTED TO GO BACK IN BED. PATIENT TOLERATED WELL.
[2019-08-12] MEDS: PANTOPRAZOLE 40 MG/10 ML VIAL INJ IV SCH ×2 (10:06→21:57)
[2019-08-12] MEDS: cefTRIAXone 1GM/50ML D5W 50 ML IV SCH (10:06)
--- NOTE | 2019-08-12 11:22 | NUR ---
HOSPITALIST AT BEDSIDE DR LOU UPDATED ON PATIENT'S STATUS, MORNING LABS AND HOME PAIN MEDICATIONS. ORDERS RECEIVED WELL TELE DOWNGRADE. ORDERS WILL BE CARRIED OUT.
[2019-08-12] MEDS ORDERED: POTASSIUM CHL 20 Meq TABLET PO ONE (11:30)
--- NOTE | 2019-08-12 14:43 | NUR ---
RETURN CALL FROM HOSPITALIST DR LOU AWARE OF ORAL PAIN MEDICATION ORAMORPH TO BE ADMINISTERED AT 1000 PM TONIGHT. ORDERS FOR ONE TIME DOSE RECEIVED.
[2019-08-12] MEDS ORDERED: MORPHINE SULF 15mg ER tab PO ONE (14:45)
--- NOTE | 2019-08-12 15:09 | NUR ---
REPORT CALLED TO RECEIVING RN FRANCE. PATIENT REQUESTING PAIN MEDICATION AND WILL BE MEDICATED PRIOR TO TRANSFER TO ROOM 280A.
--- NOTE | 2019-08-12 15:36 | NUR ---
Leonard catheter dc'd Order to discontinue leonard catheter received. Leonard dc'd with clean technique following deflation of balloon a total of 2500 mls clear/yellow urine emptied from leonard bag. Patient tolerated well with no complaints of pain, valencia care performed.
--- NOTE | 2019-08-12 15:43 | NUR ---
[facility] pt transferred to floor [facility] transferred to [facility] 280[facility] via wheelchair on cardiac catheterization technologist. All patient medications and personal belongings transferred with patient to receiving floor. Patient medicated for pain as ordered by MD. Patient alert and oriented x4, no distress noted, respirations even and unlabored. Patient care endorsed to receiving RN along with administration of maintenance fluid that was changed from 100 mls/hr to 50 mls/hr.
--- NOTE | 2019-08-12 15:44 | NUR ---
[facility] pt transferred to floor MICHAEL,MACK transferred to TELE floor. MACK RODRIGUEZ oriented to Nixon Davies RN, informed of unit policies, oriented to room. bed in lowest locked position, side rails up x 2 , call light within reach. Bed alarm activated for patient safety.
[2019-08-12 16:56] VITALS: BP 153/82
--- NOTE | 2019-08-12 17:47 | NUR ---
Patient provided with bedside commode, educated to call when she needs to get up.
--- NOTE | 2019-08-12 20:34 | NUR ---
Spoke with Liam Wick hospitalist regarding patients home medications. New orders received.
[2019-08-12] MEDS: MORPHINE SULF 15mg ER tab PO SCH (21:58)
[2019-08-12 22:00] VITALS: BP 161/71
[2019-08-12] MEDS ORDERED: traZODone HCL 50 MG TAB PO SCH (22:00)
[2019-08-13] MEDS: MORPHINE SULF INJ 2 MG/ML SYRINGE 1ML IV PRN ×3 (02:00→13:43)
--- NOTE | 2019-08-13 02:56 | NUR ---
CLOSING NOTE: Patient asleep in bed. No S/S of SOB or distress. Bed alarm activated for patient safety. Care endorsed.
[2019-08-13 05:00] VITALS: BP 148/86
[2019-08-13 06:28] LABS: Basophils # (auto) 0 10 ^3/uL (0-0.2); Basophils % (auto) 0.8 % (0.0-2.0); Eosinophils # (auto) 0.2 10 ^3/uL (0-0.8); Eosinophils % (auto) 3.8 % (0.0-7.0); Hematocrit 25.5 % (36.0-46.0); Hemoglobin 8.7 g/dL (12.2-16.2); Lymphocytes # (auto) 0.7 10 ^3/uL (0.4-5.4); Lymphocytes % (auto) 16.6 % (10.0-50.0); Mean Corpuscular Hgb Conc. 34.1 g/dL (32.0-36.0); Mean Corpuscular Volume 90.8 fL (80.0-100.0); Monocytes # (auto) 0.6 10 ^3/uL (0-1.3); Monocytes % (auto) 14.4 % (0.0-12.0); Neutrophils # (auto) 2.6 10 ^3/uL (1.6-8.6); Neutrophils % (auto) 64.4 % (37.0-80.0); Nucleated Red Blood Cells % 0.1 %; Platelet Count (auto) 109 10^3/uL (140-450); Red Blood Cells 2.81 10^6/uL (4.0-5.20); Red Cell Distribution Width 15.5 % (11.8-14.3); White Blood Cell 4.1 10^3/uL (4.4-10.8)
[2019-08-13] MEDS: SUCRALFATE 1 GM/10 ML ORAL SUSP PO SCH ×3 (06:39→16:49)
[2019-08-13 06:40] LABS: Magnesium 2.2 mg/dL (1.6-2.6); Potassium 3.5 mmol/L (3.5-5.1)
[2019-08-13 06:42] LABS: INR 1.18 (0.9-1.15)
[2019-08-13] MEDS: LORazepam 0.5 MG TAB PO PRN ×2 (07:44→15:56)
[2019-08-13 09:00] VITALS: BP 155/88
[2019-08-13] MEDS: PANTOPRAZOLE 40 MG/10 ML VIAL INJ IV SCH (10:00)
[2019-08-13] MEDS: cefTRIAXone 1GM/50ML D5W 50 ML IV SCH (10:00)
[2019-08-13] MEDS: SODIUM CHLORIDE 0.9% 1,000 ML IV SCH (10:01)
[2019-08-13] MEDS: MORPHINE SULF 15mg ER tab PO SCH (10:01)
--- NOTE | 2019-08-13 12:27 | NUR ---
Nutrition Assessment Notes Please see attached link for complete assessment [employer] needs BW 51 [id number] kcal (25-30 kcal/kg BW) Est protein needs 51-61(1.0-1.2g/kg BW) Will reassess prn. Addendum: 08/13/19 at [address] Amended: Links added.
[2019-08-13] MEDS ORDERED: SUCR1TAB22 PO (12:40)
[2019-08-13] MEDS ORDERED: PANT40TA2 PO (12:40)
[2019-08-13] MEDS ORDERED: CARVEDILOL 3.125 MG TAB PO ONE (12:45)
[2019-08-13 13:00] VITALS: BP 165/81
--- NOTE | 2019-08-13 13:22 | NUR ---
LEFT MESSAGE WITH Rachell YOUNG REGARDING CLEARANCE FOR DISCHARGE.
--- NOTE | 2019-08-13 14:21 | NUR ---
Rachell YOUNG AT BEDSIDE. CLEARED FROM HER STANDPOINT.
--- NOTE | 2019-08-13 15:35 | NUR ---
called and left voice message with daughter regarding patient being discharge and needing a ride.
--- NOTE | 2019-08-13 17:20 | NUR ---
TELE MONITOR SENT DOWN TO TELE OFFICE.
--- NOTE | 2019-08-13 17:45 | NUR ---
Discharge instructions given as ordered. Encourage to follow up with PMD as instructed. INSTRUCTED TO FOLLOW UP WITH PCP, Rachell MACK, AND POST DISCHARGE CLINIC. INSTRUCTED TO COLLET MAKING MACHINE OPERATOR NEW MEDICATIONS AT PERFERRED PHARMACY AND TO FOLLOW M.D. ORDERS ON DOSING AND FREQUENCY. All questions and concerns addressed. Patient verbalized understanding. IV removed with catheter intact, pressure dressing applied. Telemetry unit returned to ICU. Patient taken to vehicle via wheelchair with all personal belongings, accompanied by staff and family member. No distress noted at time of departure.
== END 2019-08-13 17:45 | disposition home or self-care (01) | DRG 377 ==
LOC: ER 21:58 → EDBD 21:58 → TELE 21:59 → DOU IN ICU 08-10 23:28 → TELE-WESTW 08-12 15:44
PROVIDERS: ADMIT Hospitalist; ATTEND Internal Medicine
PROC: 30233K1 Transfusion of Nonautologous Frozen Plasma into Peripheral Vein, Percutaneous Approach (ICD-10-PCS; 2019-08-10)
PROC: 30233N1 Transfusion of Nonautologous Red Blood Cells into Peripheral Vein, Percutaneous Approach (ICD-10-PCS; 2019-08-10)
PROC: 0DB88ZX Excision of Small Intestine, Via Natural or Artificial Opening Endoscopic, Diagnostic (ICD-10-PCS; 2019-08-11)
PROC: 0DB68ZX Excision of Stomach, Via Natural or Artificial Opening Endoscopic, Diagnostic (ICD-10-PCS; principal; 2019-08-11 11:53)
DX: K25.4 Chronic or unspecified gastric ulcer with hemorrhage (principal); R57.1 Hypovolemic shock; N17.0 Acute kidney failure with tubular necrosis; N39.0 Urinary tract infection, site not specified; K44.9 Diaphragmatic hernia without obstruction or gangrene; D69.6 Thrombocytopenia, unspecified; E88.09 Other disorders of plasma-protein metabolism, not elsewhere classified; M19.90 Unspecified osteoarthritis, unspecified site; E11.9 Type 2 diabetes mellitus without complications; F17.210 Nicotine dependence, cigarettes, uncomplicated; I11.0 Hypertensive heart disease with heart failure; I25.10 Atherosclerotic heart disease of native coronary artery without angina pectoris; I50.9 Heart failure, unspecified; K29.80 Duodenitis without bleeding; K57.30 Diverticulosis of large intestine without perforation or abscess without bleeding; K80.20 Calculus of gallbladder without cholecystitis without obstruction; F32.9 Major depressive disorder, single episode, unspecified; K22.2 Esophageal obstruction; F41.9 Anxiety disorder, unspecified; I95.89 Other hypotension; D64.9 Anemia, unspecified; K59.00 Constipation, unspecified; K29.71 Gastritis, unspecified, with bleeding; Z79.899 Other long term (current) drug therapy; Z83.3 Family history of diabetes mellitus; Z82.49 Family history of ischemic heart disease and other diseases of the circulatory system
CPT/HCPCS: 36415; 43239; 71045; 74176; 80048; 80053; 81001; 83735; 83880; 84132; 84484; 85014; 85018; 85025; 85610; 85730; 86850; 86900; 86901; 86920; 87081; 93005; C9113; G0378; J0696; J2250; J2405; J3430

== ENCOUNTER 2019-12-24 17:44 | Emergency (ER) | payer MEDICARE, MEDICAID ==
[~2019-12-24] VITALS: Ht 157.5 cm; Wt 50.8 kg
[~2019-12-24 17:44] MED LIST changes: +PANT40TA2 PO; +SUCR1TAB22 PO
[2019-12-24] MEDS ORDERED: ONDANSETRON ODT 4 MG TAB PO ONE (21:00)
[2019-12-24] MEDS ORDERED: HYDROmorphone HCL 2 MG/ML VL IM ONE (21:00)
[2019-12-24 21:21] VITALS: BP 150/78
== END 2019-12-24 21:32 | disposition home or self-care (01) ==
LOC: ER 17:44 → EDBD 17:44 → ER 21:32
DX: M47.816 Spondylosis without myelopathy or radiculopathy, lumbar region (principal); F11.20 Opioid dependence, uncomplicated
CPT/HCPCS: 96372; 99283; J1170; Q0162